=== PATIENT | male | born 1935 | race African-American/Black ===

== ENCOUNTER 2017-11-14 14:57 | Emergency (ER) | payer MEDICARE ==
[~2017-11-14] VITALS: Ht 175.3 cm; Wt 74.0 kg
[~2017-11-14 14:57] MED LIST: HYDR-4135 PO; HYDR25TA PO; ISOS30TA PO; METO-539 PO; NIFE90TA43 PO; PRAV40TA PO
[2017-11-14] MEDS ORDERED: ASPIRIN 81MG TABLET PO STA (15:44)
[2017-11-14] MEDS ORDERED: FUROSEMIDE 40MG/4ML VIAL IV STA (15:44)
[2017-11-14 16:27] LABS: HEMATOCRIT. 38.2 % (42.0-52.0); HEMOGLOBIN. 11.8 g/dL (14.0-18.0); MEAN CORPUSCULAR HEMOGLOBIN 24.1 pg (28.0-32.0); MEAN CORPUSCULAR VOLUME 78.3 fL (80.0-94.0); MEAN PLATELET VOLUME 10.1 fl (7.4-10.4); PLATELET 199 x1000/uL (130-400); RED BLOOD CELL COUNT 4.88 mill/uL (4.7-6.1); RED CELL DISTRIBUTION WIDTH 21.3 % (11.6-14.6)
[2017-11-14 16:28] LABS: CHLORIDE 111 mEq/L (98-107)
[2017-11-14 16:33] LABS: D-DIMER 1.69 mg/L FEU (<0.50); INR 1.2; PARTIAL THROMBOPLASTIN TIME 29.4 sec (23.4-31.0); PROTHROMBIN TIME 12.8 sec (9.4-11.6)
[2017-11-14 16:36] LABS: CREATINE KINASE 166 IU/L (39-308)
[2017-11-14 16:40] LABS: AMMONIA 30 uMol/L (<32)
[2017-11-14 17:04] LABS: NUCLEATED RED BLOOD CELLS 1 /100 WBC; PLATELET ESTIMATE NORMAL
[2017-11-14 17:32] VITALS: BP 147/81
[2017-11-14] MEDS ORDERED: NITROGLYCERIN OINT 1GM/INCH UDPKT TD STA (20:01)
[2017-11-14] MEDS ORDERED: CLONIDINE 0.2MG TABLET PO ONE (20:15)
== END 2017-11-14 21:17 | disposition home or self-care (01) ==
LOC: ER 14:57 → EDBEDREQ 20:06 → EDBEDREQTM 20:06 → ER 21:17 → CANBEDREQ 21:38
DX: I11.0 Hypertensive heart disease with heart failure (principal); N43.3 Hydrocele, unspecified; N50.89 Other specified disorders of the male genital organs; I50.9 Heart failure, unspecified; R33.9 Retention of urine, unspecified; R60.1 Generalized edema; J90 Pleural effusion, not elsewhere classified; I45.10 Unspecified right bundle-branch block; Z95.1 Presence of aortocoronary bypass graft
CPT/HCPCS: 36415; 71045; 74176; 76870; 80053; 82140; 82550; 83605; 83690; 83880; 84443; 84484; 85025; 85379; 85610; 85730; 87040; 93005; 93976; 96374; 99285; J1940